=== PATIENT | female | born 1995 | race African-American/Black ===

== ENCOUNTER 2021-02-22 03:50 | Emergency (ER) | payer MEDICAID ==
[~2021-02-22] VITALS: Ht 154.9 cm; Wt 90.0 kg
[2021-02-22] MEDS ORDERED: FAMOTIDINE 20MG/2ML VIAL IV STA (05:39)
[2021-02-22] MEDS ORDERED: MORPHINE SULFATE 4 MG/ML CPJ (NOT FOR IM USE) IV STA (05:39)
[2021-02-22] MEDS ORDERED: ONDANSETRON HCL 4MG/2ML INJ IV STA (05:39)
[2021-02-22] MEDS ORDERED: MAGNESIUM/ALUMINUM HYDROXIDE/SIMETHICONE 30ML UDC PO STA (05:39)
[2021-02-22] MEDS ORDERED: SODIUM CHLORIDE 0.9% 1,000 ML IV ONE (05:45)
[2021-02-22 06:10] LABS: CHLORIDE 104 mEq/L (98-107)
[2021-02-22 06:15] LABS: ETHANOL BLOOD < 10 mg/dL; HCG SCREEN POSITIVE
[2021-02-22 06:43] LABS: BASOPHILS % 0.2 % (0.0-2.0); EOSINOPHILS % 0.6 % (0.0-5.0); HEMATOCRIT. 32.9 % (36.0-48.0); HEMOGLOBIN. 10.6 g/dL (12.0-16.0); LYMPHOCYTES % 13.3 % (20.0-50.0); MEAN CORPUSCULAR VOLUME 80.6 fL (81.0-99.0); MEAN PLATELET VOLUME 7.5 fl (7.4-10.4); NEUTROPHILS % 78.9 % (40.0-76.0); PLATELET 269 x1000/uL (130-400); RED BLOOD CELL COUNT 4.09 mill/uL (4.2-5.4)
[2021-02-22 07:10] LABS: CLARITY URINE CLEAR (CLEAR); COLOR URINE YELLOW (YELLOW); KETONES URINE 4+ (NEGATIVE); LEUKOCYTE ESTERASE URINE TRACE (NEGATIVE); NITRITE URINE NEGATIVE (NEGATIVE); OCCULT BLOOD URINE NEGATIVE (NEGATIVE); PH URINE 5.5 (4.5-8.0); PROTEIN URINE 1+ (NEGATIVE); SPECIFIC GRAVITY URINE 1.029 (1.005-1.030); UROBILINOGEN URINE 0.2 E.U./dL (0.2-1.0)
[2021-02-22 07:20] LABS: *AMPHETAMINES SCREEN URINE NEGATIVE (NEGATIVE); *BARBITURATES SCREEN URINE NEGATIVE (NEGATIVE); *BENZODIAZEPINES SCREEN URINE NEGATIVE (NEGATIVE)
[2021-02-22 07:21] LABS: *COCAINE SCREEN URINE NEGATIVE (NEGATIVE); METHADONE URINE SCREEN NEGATIVE (NEGATIVE); PHENCYCLIDINE URINE SCREEN NEGATIVE (NEGATIVE)
[2021-02-22 07:24] LABS: CANNABINOID URINE SCREEN PRESUMTIVE POSITIVE (NEGATIVE); OPIATES URINE SCREEN PRESUMTIVE POSITIVE (NEGATIVE)
[2021-02-22] MEDS ORDERED: NITR-87 MT (10:07)
[2021-02-22] MEDS ORDERED: ONDA4TAB11 PO (10:07)
[2021-02-22] MEDS ORDERED: ONDANSETRON HCL 4MG/2ML INJ IV ONE (10:15)
[2021-02-22] MEDS ORDERED: METOCLOPRAMIDE HCL 10MG/2ML VIAL IV ONE (11:15)
[2021-02-22 13:41] VITALS: BP 129/68
== END 2021-02-22 13:43 | disposition home or self-care (01) ==
LOC: ER 04:17
DX: O21.0 Mild hyperemesis gravidarum (principal); Z3A.01 Less than 8 weeks gestation of pregnancy
CPT/HCPCS: 36415; 71045; 76700; 76801; 76817; 80053; 80305; 80320; 81003; 81025; 83690; 84702; 84703; 85025; 93005; 96361; 96374; 96375; 96376; 99285; J2270; J2405; J2765; J3490; J7030; G0480

== ENCOUNTER 2021-03-01 19:39 | Inpatient (IN) | payer MEDICAID ==
[~2021-03-01] VITALS: Ht 154.9 cm; Wt 87.5 kg
[~2021-03-01 19:39] MED LIST: NITR-87 MT; ONDA4TAB11 PO
[2021-03-01] MEDS ORDERED: ACETAMINOPHEN 325MG TABLET PO STA (20:23)
[2021-03-01] MEDS ORDERED: METOCLOPRAMIDE HCL 10MG/2ML VIAL IV STA (20:23)
[2021-03-01] MEDS ORDERED: FAMOTIDINE 20MG/2ML VIAL IV STA (20:23)
[2021-03-01] MEDS ORDERED: SODIUM CHLORIDE 0.9% 1,000 ML IV ONE (20:30)
[2021-03-01 20:58] LABS: BASOPHILS % 0.3 % (0.0-2.0); HEMATOCRIT. 38.1 % (36.0-48.0); HEMOGLOBIN. 12.5 g/dL (12.0-16.0); LYMPHOCYTES % 12.4 % (20.0-50.0); MEAN CORPUSCULAR HEMOGLOBIN 26.2 pg (28.0-32.0); MEAN CORPUSCULAR VOLUME 79.9 fL (81.0-99.0); MEAN PLATELET VOLUME 7.4 fl (7.4-10.4); MONOCYTES % 6.9 % (2.0-8.0); NEUTROPHILS % 80.4 % (40.0-76.0); PLATELET 343 x1000/uL (130-400); RED BLOOD CELL COUNT 4.77 mill/uL (4.2-5.4); RED CELL DISTRIBUTION WIDTH 15.6 % (11.6-14.6)
[2021-03-01 21:04] LABS: CHLORIDE 96 mEq/L (98-107)
[2021-03-02 00:03] LABS: CLARITY URINE CLOUDY (CLEAR); COLOR URINE YELLOW (YELLOW); KETONES URINE 4+ (NEGATIVE); LEUKOCYTE ESTERASE URINE 1+ (NEGATIVE); NITRITE URINE NEGATIVE (NEGATIVE); OCCULT BLOOD URINE NEGATIVE (NEGATIVE); PH URINE 5.5 (4.5-8.0); PROTEIN URINE 1+ (NEGATIVE); SPECIFIC GRAVITY URINE 1.032 (1.005-1.030)
[2021-03-02] MEDS ORDERED: METOCLOPRAMIDE HCL 10MG/2ML VIAL IV ONE ×2 (00:15)
[2021-03-02] MEDS ORDERED: KCL 20MEQ/100ML PREMIX 100 ML IV ONE (00:45)
[2021-03-02 04:19] VITALS: BP 122/50
[2021-03-02] MEDS ORDERED: ACETAMINOPHEN 325MG SUPP PR PRN (05:30)
[2021-03-02] MEDS ORDERED: ACETAMINOPHEN 650MG SUPP PR PRN (06:00)
[2021-03-02] MEDS: ONDANSETRON HCL 4MG/2ML INJ IV SCH ×3 (07:06→18:49)
[2021-03-02 08:00] VITALS: BP 110/63
[2021-03-02] MEDS ORDERED: MVI, ADULT NO.1 10 ML in DEXT 5%/0.9% NACL 1,000 ML IV SCH (09:00)
[2021-03-02] MEDS: PYRIDOXINE 100 MG/ML 1ML IM SCH (09:44)
[2021-03-02] MEDS: CEFAZOLIN 2,000 MG in DEXT 5% WATER 100 ML IV SCH ×3 (10:18→21:14)
[2021-03-02 10:29] LABS: PHENCYCLIDINE URINE SCREEN NEGATIVE (NEGATIVE)
[2021-03-02 10:30] LABS: *AMPHETAMINES SCREEN URINE NEGATIVE (NEGATIVE); *BARBITURATES SCREEN URINE NEGATIVE (NEGATIVE); *BENZODIAZEPINES SCREEN URINE NEGATIVE (NEGATIVE); *COCAINE SCREEN URINE NEGATIVE (NEGATIVE); METHADONE URINE SCREEN NEGATIVE (NEGATIVE); OPIATES URINE SCREEN NEGATIVE (NEGATIVE)
[2021-03-02 10:33] LABS: CANNABINOID URINE SCREEN PRESUMTIVE POSITIVE (NEGATIVE)
[2021-03-02 12:00] VITALS: BP 113/58
[2021-03-02] MEDS: DEXT 5%/0.9% NACL 1,000 ML IV SCH ×3 (14:15→21:15)
[2021-03-02 16:00] VITALS: BP 124/58
[2021-03-02 20:00] VITALS: BP 108/63
[2021-03-03] VITALS: BP 128/59
[2021-03-03] MEDS: ONDANSETRON HCL 4MG/2ML INJ IV SCH ×4 (00:17→16:52)
[2021-03-03] MEDS: CEFAZOLIN 2,000 MG in DEXT 5% WATER 100 ML IV SCH ×4 (03:07→20:43)
[2021-03-03 04:00] VITALS: BP 107/49
[2021-03-03] MEDS: DEXT 5%/0.9% NACL 1,000 ML IV SCH ×3 (05:20→22:19)
[2021-03-03 08:00] VITALS: BP 114/52
[2021-03-03] MEDS: KCL 20MEQ/100ML PREMIX 100 ML IV SCH ×2 (08:58→12:37)
[2021-03-03] MEDS: PYRIDOXINE 100 MG/ML 1ML IM SCH (08:59)
[2021-03-03] MEDS: PRENATAL VIT/FE FUMARATE/FA TABLET PO SCH (08:59)
[2021-03-03] MEDS ORDERED: POTASSIUM CHLORIDE 20MEQ TABLET SR PO SCH (11:00)
[2021-03-03 12:00] VITALS: BP 116/58
[2021-03-03 16:00] VITALS: BP 108/55
[2021-03-03] MEDS: POTASSIUM CHLORIDE 20MEQ TABLET SR PO SCH (17:55)
[2021-03-03 20:00] VITALS: BP 123/61
[2021-03-04] MEDS: ONDANSETRON HCL 4MG/2ML INJ IV SCH ×2 (00:31→06:08)
[2021-03-04] MEDS: CEFAZOLIN 2,000 MG in DEXT 5% WATER 100 ML IV SCH ×2 (03:25→08:26)
[2021-03-04 04:00] VITALS: BP 113/45
[2021-03-04] MEDS: DEXT 5%/0.9% NACL 1,000 ML IV SCH (06:09)
[2021-03-04 08:00] VITALS: BP 104/62
[2021-03-04] MEDS: POTASSIUM CHLORIDE 20MEQ TABLET SR PO SCH (08:27)
[2021-03-04] MEDS: PYRIDOXINE 100 MG/ML 1ML IM SCH (08:27)
[2021-03-04] MEDS: PRENATAL VIT/FE FUMARATE/FA TABLET PO SCH (08:27)
[2021-03-04 10:09] LABS: BASOPHILS % 0.3 % (0.0-2.0); EOSINOPHILS % 1.3 % (0.0-5.0); HEMATOCRIT. 37.1 % (36.0-48.0); LYMPHOCYTES % 23.6 % (20.0-50.0); MEAN CORPUSCULAR HEMOGLOBIN 26.1 pg (28.0-32.0); MEAN CORPUSCULAR VOLUME 80.8 fL (81.0-99.0); MONOCYTES % 8.1 % (2.0-8.0); NEUTROPHILS % 66.7 % (40.0-76.0); PLATELET 252 x1000/uL (130-400); RED BLOOD CELL COUNT 4.59 mill/uL (4.2-5.4); RED CELL DISTRIBUTION WIDTH 15.7 % (11.6-14.6)
[2021-03-04 10:30] LABS: CHLORIDE 105 mEq/L (98-107)
[2021-03-09] MEDS ORDERED: PROT40 MT (08:41)
[2021-03-09] MEDS ORDERED: ONDA4TAB5 MT (08:42)
== END 2021-03-04 11:45 | disposition home or self-care (01) | DRG 566 ==
LOC: ER 19:39 → 6EST 03-02 01:05 → ENRESERV 03-02 02:16
PROVIDERS: ADMIT Specialist; ATTEND Specialist
DX: O21.0 Mild hyperemesis gravidarum (principal); E87.1 Hypo-osmolality and hyponatremia; O23.41 Unspecified infection of urinary tract in pregnancy, first trimester; N39.0 Urinary tract infection, site not specified; O99.281 Endocrine, nutritional and metabolic diseases complicating pregnancy, first trimester; E87.6 Hypokalemia; Z3A.01 Less than 8 weeks gestation of pregnancy
CPT/HCPCS: 36415; 71045; 76815; 80053; 80305; 81003; 83605; 84132; 84484; 85025; 93005; 99285; C1893; J0690; J2405; J2765; J3415; J3480; J3490; J7030; J7040; J7042; J7060

== ENCOUNTER 2021-03-05 09:09 | Inpatient (IN) | payer MEDICAID ==
[~2021-03-05] VITALS: Ht 154.9 cm; Wt 86.2 kg
[2021-03-05 10:49] LABS: BASOPHILS % 0.3 % (0.0-2.0); EOSINOPHILS % 0.2 % (0.0-5.0); HEMATOCRIT. 34.5 % (36.0-48.0); LYMPHOCYTES % 29.8 % (20.0-50.0); MEAN CORPUSCULAR HEMOGLOBIN 25.5 pg (28.0-32.0); MEAN CORPUSCULAR VOLUME 79.6 fL (81.0-99.0); MEAN PLATELET VOLUME 7.4 fl (7.4-10.4); MONOCYTES % 11.1 % (2.0-8.0); NEUTROPHILS % 58.6 % (40.0-76.0); PLATELET 253 x1000/uL (130-400); RED BLOOD CELL COUNT 4.34 mill/uL (4.2-5.4); RED CELL DISTRIBUTION WIDTH 15.7 % (11.6-14.6)
[2021-03-05 10:50] LABS: CLARITY URINE CLOUDY (CLEAR); COLOR URINE DARK YELLOW (YELLOW); KETONES URINE 4+ (NEGATIVE); LEUKOCYTE ESTERASE URINE 1+ (NEGATIVE); NITRITE URINE NEGATIVE (NEGATIVE); OCCULT BLOOD URINE NEGATIVE (NEGATIVE); PROTEIN URINE 1+ (NEGATIVE)
[2021-03-05 10:53] LABS: CHLORIDE 101 mEq/L (98-107)
[2021-03-05 11:03] LABS: BETA HYDROXYBUTYRATE 1.7 mMol/L (0.0-0.3)
[2021-03-05] MEDS ORDERED: METOCLOPRAMIDE HCL 10MG/2ML VIAL IV ONE (11:30)
[2021-03-05] MEDS ORDERED: SODIUM CHLORIDE 0.9% 1,000 ML IV ONE (11:30)
[2021-03-05] MEDS ORDERED: POTASSIUM CHLORIDE 20MEQ TABLET SR PO ONE (12:15)
[2021-03-05] MEDS ORDERED: DIPHENHYDRAMINE 50MG/ML VIAL IV ONE (17:15)
[2021-03-05] MEDS ORDERED: ONDANSETRON HCL 4MG/2ML INJ IV ONE ×2 (17:15→17:45)
[2021-03-05] MEDS: DEXT 5%/0.45% NACL KCL 20MEQ/L 1,000 ML IV SCH (18:29)
[2021-03-06] MEDS: DEXT 5%/0.45% NACL KCL 20MEQ/L 1,000 ML IV SCH ×2 (03:45→14:21)
[2021-03-06 05:14] LABS: BASOPHILS % 0.3 % (0.0-2.0); EOSINOPHILS % 1.1 % (0.0-5.0); HEMATOCRIT. 34.5 % (36.0-48.0); HEMOGLOBIN. 11.1 g/dL (12.0-16.0); MEAN CORPUSCULAR HEMOGLOBIN 25.9 pg (28.0-32.0); MEAN CORPUSCULAR VOLUME 80.8 fL (81.0-99.0); MEAN PLATELET VOLUME 7.8 fl (7.4-10.4); MONOCYTES % 14.2 % (2.0-8.0); NEUTROPHILS % 57.4 % (40.0-76.0); PLATELET 233 x1000/uL (130-400); RED BLOOD CELL COUNT 4.27 mill/uL (4.2-5.4); RED CELL DISTRIBUTION WIDTH 16.3 % (11.6-14.6)
[2021-03-06 05:19] LABS: CHLORIDE 105 mEq/L (98-107)
[2021-03-06 08:00] VITALS: BP 120/54
[2021-03-06 09:30] VITALS: BP 120/54
[2021-03-06] MEDS: ONDANSETRON HCL 4MG/2ML INJ IV PRN (09:58)
[2021-03-06] MEDS: PANTOPRAZOLE SODIUM 40 MG/VIAL IV SCH (09:58)
[2021-03-06 12:00] VITALS: BP 120/79
[2021-03-06 16:00] VITALS: BP 123/57
[2021-03-07] MEDS: DEXT 5%/0.45% NACL KCL 20MEQ/L 1,000 ML IV SCH ×2 (00:44→09:01)
[2021-03-07] MEDS ORDERED: ACETAMINOPHEN 325MG TABLET PO PRN (06:30)
[2021-03-07] MEDS: ONDANSETRON HCL 4MG/2ML INJ IV SCH ×3 (07:07→17:44)
[2021-03-07 08:00] VITALS: BP 111/53
[2021-03-07] MEDS: PANTOPRAZOLE SODIUM 40 MG/VIAL IV SCH (09:01)
[2021-03-07 12:00] VITALS: BP 104/60
[2021-03-07 16:00] VITALS: BP 115/70
[2021-03-08] MEDS: DEXT 5%/0.45% NACL KCL 20MEQ/L 1,000 ML IV SCH ×4 (00:17→23:58)
[2021-03-08] MEDS: ONDANSETRON HCL 4MG/2ML INJ IV SCH ×5 (00:17→23:59)
[2021-03-08 08:00] VITALS: BP 107/50
[2021-03-08] MEDS: ONDANSETRON HCL 4MG/2ML INJ IV PRN (11:04)
[2021-03-08] MEDS: PANTOPRAZOLE SODIUM 40 MG/VIAL IV SCH (11:04)
[2021-03-08 12:00] VITALS: BP 106/52
[2021-03-08 16:00] VITALS: BP 106/52
[2021-03-08 20:00] VITALS: BP 112/50
[2021-03-09] VITALS: BP 96/51
[2021-03-09 04:00] VITALS: BP 108/42
[2021-03-09] MEDS: ONDANSETRON HCL 4MG/2ML INJ IV SCH ×3 (06:45→17:52)
[2021-03-09 08:00] VITALS: BP 94/50
[2021-03-09] MEDS ORDERED: PROT40 MT (08:41)
[2021-03-09] MEDS ORDERED: ONDA4TAB5 MT (08:42)
[2021-03-09] MEDS: PANTOPRAZOLE SODIUM 40 MG/VIAL IV SCH (08:52)
[2021-03-09 12:00] VITALS: BP 94/49
[2021-03-09] MEDS ORDERED: DEXT 5%/0.45% NACL KCL 20MEQ/L 1,000 ML IV SCH (12:30)
[2021-03-09] MEDS: ONDANSETRON HCL 4MG/2ML INJ IV PRN (17:07)
[2021-03-09 17:21] VITALS: BP 94/50
== END 2021-03-09 17:52 | disposition home or self-care (01) | DRG 566 ==
LOC: ER 09:09 → 6EST 17:43 → EDBEDREQ 17:48 → EDBEDREQTM 17:48 → ENRESERV 03-06 07:27
PROVIDERS: ADMIT Obstetrics & Gynecology; ATTEND Obstetrics & Gynecology
DX: O21.1 Hyperemesis gravidarum with metabolic disturbance (principal); K62.5 Hemorrhage of anus and rectum; O99.611 Diseases of the digestive system complicating pregnancy, first trimester; R19.7 Diarrhea, unspecified; Z3A.08 8 weeks gestation of pregnancy; Z79.899 Other long term (current) drug therapy
CPT/HCPCS: 36415; 76801; 80048; 80053; 81003; 82010; 85025; 93005; 99285; C1893; C9113; J1200; J2405; J2765; J7030